=== PATIENT | male | born 1965 | race Caucasian/White ===

== ENCOUNTER 2016-11-20 18:37 | Emergency (ER) | payer SELFPAY ==
[~2016-11-20] VITALS: Ht 170.2 cm; Wt 75.0 kg
[2016-11-20] MEDS ORDERED: IBUPROFEN 600MG TABLET PO ONE (20:00)
[2016-11-20 21:00] VITALS: BP 106/66
== END 2016-11-20 21:18 | disposition home or self-care (01) ==
LOC: ER 19:02
DX: S16.1XXA Strain of muscle, fascia and tendon at neck level, initial encounter (principal); X58.XXXA Exposure to other specified factors, initial encounter; Y93.89 Activity, other specified; Y92.488 Other paved roadways as the place of occurrence of the external cause; R03.0 Elevated blood-pressure reading, without diagnosis of hypertension; E78.00 Pure hypercholesterolemia, unspecified
CPT/HCPCS: 72040; 99284

== ENCOUNTER 2016-11-21 13:40 | Emergency (ER) | payer MEDICAID ==
[~2016-11-21] VITALS: Ht 175.3 cm; Wt 81.0 kg
[2016-11-21] MEDS ORDERED: IBUPROFEN 600MG TABLET PO ONE (17:30)
[2016-11-21 17:38] VITALS: BP 117/75
== END 2016-11-21 18:54 | disposition home or self-care (01) ==
LOC: ER 14:18
DX: Z76.0 Encounter for issue of repeat prescription (principal); E78.00 Pure hypercholesterolemia, unspecified
CPT/HCPCS: 99282

== ENCOUNTER 2016-11-27 11:30 | Emergency (ER) | payer MEDICAID ==
[~2016-11-27] VITALS: Ht 170.2 cm; Wt 77.0 kg
[2016-11-27 11:50] VITALS: BP 134/79
== END 2016-11-27 12:36 | disposition home or self-care (01) ==
LOC: ER 12:25
DX: S16.1XXD Strain of muscle, fascia and tendon at neck level, subsequent encounter (principal); R51 Headache; V49.60XD Unspecified car occupant injured in collision with unspecified motor vehicles in traffic accident, subsequent encounter; Y93.89 Activity, other specified; Y92.410 Unspecified street and highway as the place of occurrence of the external cause; R03.0 Elevated blood-pressure reading, without diagnosis of hypertension
CPT/HCPCS: 99283

== ENCOUNTER 2016-12-22 17:20 | Emergency (ER) | payer MEDICAID ==
[~2016-12-22] VITALS: Ht 170.2 cm; Wt 77.0 kg
[2016-12-22] MEDS ORDERED: KETOROLAC 60MG/2ML VIAL IM ONE (22:15)
[2016-12-22 22:40] VITALS: BP 129/61
== END 2016-12-22 23:08 | disposition home or self-care (01) ==
LOC: ER 21:44
DX: S16.1XXA Strain of muscle, fascia and tendon at neck level, initial encounter (principal); E78.00 Pure hypercholesterolemia, unspecified; V89.2XXA Person injured in unspecified motor-vehicle accident, traffic, initial encounter; Y93.89 Activity, other specified; Y92.488 Other paved roadways as the place of occurrence of the external cause; Y99.8 Other external cause status
CPT/HCPCS: 96372; 99283; J1885; Z7610

== ENCOUNTER 2018-02-12 21:44 | Emergency (ER) | payer MEDICAID ==
[~2018-02-12] VITALS: Ht 167.6 cm; Wt 87.0 kg
[2018-02-12 22:00] VITALS: BP 124/85
== END 2018-02-13 00:30 | disposition left against medical advice (07) ==
LOC: ER 21:44
DX: Z53.21 Procedure and treatment not carried out due to patient leaving prior to being seen by health care provider (principal); J45.909 Unspecified asthma, uncomplicated

== ENCOUNTER 2018-06-04 19:36 | Emergency (ER) | payer MEDICAID ==
[~2018-06-04] VITALS: Ht 170.2 cm; Wt 84.0 kg
[2018-06-04] MEDS ORDERED: NEOMYCIN-POLYMYXIN B-HYDROCORTISONE 1% OTIC SOLN 10ML RIGHT EAR ONE (22:30)
[2018-06-04] MEDS ORDERED: IBUPROFEN 800MG TABLET PO ONE (22:30)
[2018-06-04 23:33] VITALS: BP 131/86
== END 2018-06-04 23:34 | disposition home or self-care (01) ==
LOC: ER 19:36
DX: H92.01 Otalgia, right ear (principal); J45.909 Unspecified asthma, uncomplicated
CPT/HCPCS: 99283

== ENCOUNTER 2018-07-22 13:59 | Emergency (ER) | payer MEDICAID ==
[~2018-07-22] VITALS: Ht 170.2 cm; Wt 82.0 kg
[2018-07-22] MEDS ORDERED: IBUPROFEN 800MG TABLET PO ONE (16:45)
[2018-07-22 18:00] VITALS: BP 137/77
== END 2018-07-22 18:03 | disposition home or self-care (01) ==
LOC: ER 13:59
DX: M25.521 Pain in right elbow (principal); H92.02 Otalgia, left ear; I10 Essential (primary) hypertension
CPT/HCPCS: 73080; 99283

== ENCOUNTER 2018-08-08 17:01 | Emergency (ER) | payer MEDICAID ==
[~2018-08-08] VITALS: Ht 170.2 cm; Wt 84.0 kg
[2018-08-08 17:46] VITALS: BP 155/107
== END 2018-08-08 20:15 | disposition left against medical advice (07) ==
LOC: ER 17:01
DX: Z53.21 Procedure and treatment not carried out due to patient leaving prior to being seen by health care provider (principal)

== ENCOUNTER 2019-07-02 08:09 | Emergency (ER) | payer MEDICAID ==
[~2019-07-02] VITALS: Ht 170.2 cm; Wt 80.0 kg
[2019-07-02 08:29] VITALS: BP 126/80
== END 2019-07-02 09:49 | disposition home or self-care (01) ==
LOC: ER 08:09
DX: T23.002A Burn of unspecified degree of left hand, unspecified site, initial encounter (principal); X08.8XXA Exposure to other specified smoke, fire and flames, initial encounter; Y93.89 Activity, other specified; Y92.89 Other specified places as the place of occurrence of the external cause; R20.8 Other disturbances of skin sensation; R03.0 Elevated blood-pressure reading, without diagnosis of hypertension
CPT/HCPCS: 99281

== ENCOUNTER 2020-08-02 14:20 | Emergency (ER) | payer MEDICAID ==
[~2020-08-02] VITALS: Ht 170.2 cm; Wt 79.3 kg
[2020-08-02] MEDS ORDERED: IBUPROFEN 600MG TABLET PO STA (14:56)
[2020-08-02] MEDS ORDERED: ACETAMINOPHEN 325MG TABLET PO STA (14:56)
[2020-08-02] MEDS ORDERED: DEXAMETHASONE 10 MG/ML VIAL IM ONE (15:00)
[2020-08-02] MEDS ORDERED: LIDOCAINE 5% PATCH TOP SCH (15:00)
[2020-08-02 16:58] LABS: BASOPHILS % 1.1 % (0.0-2.0); EOSINOPHILS % 3.7 % (0.0-5.0); HEMATOCRIT. 44.9 % (42.0-52.0); HEMOGLOBIN. 15.2 g/dL (14.0-18.0); MEAN CORPUSCULAR HEMOGLOBIN 28.4 pg (28.0-32.0); MEAN PLATELET VOLUME 7.9 fl (7.4-10.4); MONOCYTES % 13.2 % (2.0-8.0); PLATELET 248 x1000/uL (130-400); RED BLOOD CELL COUNT 5.35 mill/uL (4.7-6.1); RED CELL DISTRIBUTION WIDTH 14.1 % (11.6-14.6)
[2020-08-02 17:01] LABS: CHLORIDE 105 mEq/L (98-107)
[2020-08-02 17:07] LABS: CLARITY URINE CLEAR (CLEAR); COLOR URINE YELLOW (YELLOW); KETONES URINE NEGATIVE (NEGATIVE); LEUKOCYTE ESTERASE URINE NEGATIVE (NEGATIVE); NITRITE URINE NEGATIVE (NEGATIVE); OCCULT BLOOD URINE 1+ (NEGATIVE); PH URINE 5.5 (4.5-8.0); PROTEIN URINE NEGATIVE (NEGATIVE); SPECIFIC GRAVITY URINE 1.028 (1.005-1.030)
[2020-08-02 18:00] VITALS: BP 118/80
== END 2020-08-02 18:00 | disposition home or self-care (01) ==
LOC: ER 14:25
DX: M54.5 Low back pain (principal); G89.29 Other chronic pain; R31.29 Other microscopic hematuria; Z59.0 Homelessness
CPT/HCPCS: 36415; 80053; 81003; 85025; 96372; 99284; J1100